=== PATIENT | male | born 1965 | race Hispanic/Latino ===

== ENCOUNTER 2024-02-28 13:52 | Emergency (ER) | payer BC, SELFPAY ==
[2024-02-28 14:24] LABS: #Basophils Less than 0.03 10x3/uL (0.0-0.2); #Eosinophils Less than 0.03 10x3/uL (0.0-0.5); #Monocytes 1.25 10x3/uL (0.0-1.1); #Neutrophils 15.71 10x3/uL (1.5-8.4); %Basophils 0.1 % (0.0-2.0); %Lymphocytes 2.5 % (18.0-47.0); %Monocytes 7.1 % (0.0-10.0); %Neutrophils 89.7 % (40.0-75.0); Hemoglobin 11.9 g/dL (13.5-17.5); Mean Corpuscular HGB CONC 32.2 g/dL (32.0-36.0); Mean Corpuscular Hemoglobin 30.1 pg (27.0-33.0); Mean Corpuscular Volume 93.7 fL (81.2-95.1); Mean Platelet Volume 10.3 fL (7.4-10.4); Platelet Count 225 10x3/uL (150-450); Red Blood Cell (RBC) Count 3.95 10x6/uL (4.32-5.72); White Blood Cell (WBC) Count 17.52 10x3/uL (3.5-10.5)
[2024-02-28] MEDS ORDERED: Acetaminophen 500 MG TAB ONE ×2 (14:32→20:40)
[2024-02-28 14:40] LABS: ALT (SGPT) 19 U/L (8-55); AST (SGOT) 21 U/L (5-34); Albumin 4.5 g/dL (3.5-5.0); Alkaline Phosphatase 95 U/L (40-110); Anion Gap 16 mmol/L (10-20); BUN (Urea Nitrogen) 25 mg/dL (8.4-25.7); Bilirubin, Total 0.6 mg/dL (0.2-1.2); Calc. Creatinine Clearance 0 mL/min (70-130); Calcium 10.4 mg/dL (7.8-10.44); Carbon Dioxide 33 mmol/L (22-29); Chloride 96 mmol/L (98-107); Estimated GFR 9; Globulin 3.7 g/dL (2.4-3.5); Glucose 141 mg/dL (70-105); Lipase 27 U/L (8-78); Magnesium 2.3 mg/dL (1.6-2.6); Potassium 5.2 mmol/L (3.5-5.1); Protein, Total 8.2 g/dL (6.0-8.3); Sodium 140 mmol/L (136-145)
[2024-02-28 14:43] LABS: Troponin I 0.022 ng/mL (< 0.028)
[2024-02-28] MEDS ORDERED: Piperacillin/Tazobactam 4.5 GM VIAL ONE (16:15)
[2024-02-28] MEDS ORDERED: Morphine 4 MG/ML VIAL ONE (18:36)
[2024-02-28] MEDS ORDERED: hydrALAZINE 20 MG/ML VIAL ONE (18:36)
== END 2024-02-28 22:43 | disposition short-term general hospital (02) ==
LOC: CSHERS 13:52
DX: K81.0 Acute cholecystitis (principal); I13.2 Hypertensive heart and chronic kidney disease with heart failure and with stage 5 chronic kidney disease, or end stage renal disease; E11.22 Type 2 diabetes mellitus with diabetic chronic kidney disease; N18.6 End stage renal disease; I50.9 Heart failure, unspecified; E11.9 Type 2 diabetes mellitus without complications; Z99.2 Dependence on renal dialysis
CPT/HCPCS: 36415; 71045; 74176; 76705; 80053; 83605; 83690; 83735; 83880; 84484; 85025; 87040; 87428; 93005; J0360; J2270; J2543